=== PATIENT | male | born 1970 | race Caucasian/White ===

== ENCOUNTER → 2021-04-20 | Outpatient (CLI) | payer OTHER ==
[2021-04-21 08:13] LABS: RHEUMATOID ARTHRITIS FACTOR 233.5 IU/mL (0.0-13.9); VITAMIN D, 25-HYDROXY 28.4 ng/mL (30.0-100.0)
== END ==
LOC: LAB 11:42
PROVIDERS: Nurse Practitioner Family
DX: M79.671 Pain in right foot (principal); M79.672 Pain in left foot; R53.83 Other fatigue; M25.50 Pain in unspecified joint; D89.9 Disorder involving the immune mechanism, unspecified; R76.8 Other specified abnormal immunological findings in serum; M79.10 Myalgia, unspecified site; R93.6 Abnormal findings on diagnostic imaging of limbs
CPT/HCPCS: 36415; 73630; 82550; 83520; 85652; 86140; 86200; 86431